=== PATIENT | male | born 1965 | race Caucasian/White ===

== ENCOUNTER 2016-12-07 18:42 | Emergency (ER) | payer OTHER ==
[~2016-12-07] VITALS: Wt 167.8 kg
[~2016-12-07 18:42] MED LIST: ALDACTONE25 MG PO; CITALOPRAM HYDR10 MG PO; COREG25 MG PO; COUMADIN5 M2 PO; DAYPRO600 M1 PO; FUROSEMIDE10 MG/ML PO; HYDROCODONE BIT1 T11 PO; INDOCIN25 MG PO; INDOCIN50 M2 RC; KEFLEX500 M1 PO; KENALOG 0.1%80 GM T; LANOXIN0.25 MG PO; LASIX20 MG PO; MOTRIN800 MG PO; PERCOCET 325 MG1 TA7 PO; POTASSIUM CHLO10 ME4 PO; PREDNISONE20 M1 PO; ROBAXIN750 MG PO; ROPINIROLE HYDRO1 MG PO; VICODIN 500 MG-1 TAB PO; VICODIN ES 7501 TAB PO; VISTARIL50 MG PO; XARE15TA PO; ZESTRIL5 MG PO; Zestril,Prinivil PO
[2016-12-07] MEDS ORDERED: CEPHALEXIN500 M1 PO (20:09)
== END 2016-12-07 20:12 | disposition home or self-care (01) ==
LOC: ED 18:42
DX: S60.032A Contusion of left middle finger without damage to nail, initial encounter (principal); L03.114 Cellulitis of left upper limb; I10 Essential (primary) hypertension; Z79.899 Other long term (current) drug therapy; X58.XXXA Exposure to other specified factors, initial encounter; Y93.9 Activity, unspecified; Y92.9 Unspecified place or not applicable; Y99.9 Unspecified external cause status

== ENCOUNTER 2016-12-11 18:14 | Emergency (ER) | payer OTHER ==
[~2016-12-11] VITALS: Ht 185.4 cm; Wt 127.0 kg
[~2016-12-11 18:14] MED LIST changes: +CEPHALEXIN500 M1 PO
[2016-12-11 19:00] LABS: BASO % 0.3 % (0.0-1.0); EOS # 0.2 10*3/uL (0.0-0.4); EOS % 1.9 % (1.0-4.0); HEMATOCRIT 49.2 % (42.0-52.0); HEMOGLOBIN 16.6 g/dl (14.0-18.0); IG # 0.1 10*3/uL (0.0-0.1); LYMPH # 3.1 10*3/uL (1.3-4.4); LYMPH % 26.8 % (27.0-41.0); MEAN CELL VOLUME 94.6 fl (80.0-94.0); MEAN CORPUSCULAR HGB 31.9 pg (27.0-31.0); MEAN CORPUSCULAR HGB CONC 33.7 g/dl (33.0-37.0); MEAN PLATELET VOLUME 10.1 fl (9.6-12.3); MONO # 0.7 10*3/uL (0.1-1.0); MONO % 6.4 % (3.0-9.0); NEUT # 7.5 10*3/uL (2.3-7.9); NEUT % 64.2 % (47.0-73.0); PLATELET COUNT AUTOMATED 223 10*3/uL (130-400); RED CELL DISTRI WIDTH 13.2 % (0-14.5); WHITE BLOOD COUNT 11.6 10*3/uL (4.8-10.8)
[2016-12-11 19:19] LABS: ALBUMIN 3.2 gm/dl (3.1-4.5); ALKALINE PHOSPHATASE 79 U/L (45-117); BILIRUBIN, TOTAL 0.9 mg/dl (0.2-1.0); BUN 13 mg/dl (7-24); C-REACTIVE PROTEIN 2.42 MG/DL (0-0.3); CARBON DIOXIDE 22 mmol/L (21-32); CHLORIDE 107 mmol/L (98-107); EST GLOM FILT AFRICAN AMERICAN > 60 ml/min; GLUCOSE 103 mg/dL (65-99); POTASSIUM 3.9 mmol/L (3.5-5.1); SGOT/AST 15 IU/L (3-35); SGPT/ALT 22 U/L (12-78); SODIUM 137 mmol/L (136-145)
[2016-12-11] MEDS ORDERED: CLINDAMYCIN150 MG PO (19:21)
== END 2016-12-11 19:32 | disposition home or self-care (01) ==
LOC: ED 18:14
PROVIDERS: Nurse Practitioner Family
DX: L03.012 Cellulitis of left finger (principal); R03.0 Elevated blood-pressure reading, without diagnosis of hypertension; M19.90 Unspecified osteoarthritis, unspecified site; Z79.01 Long term (current) use of anticoagulants; Z79.899 Other long term (current) drug therapy

== ENCOUNTER 2017-01-26 14:57 | Inpatient (IN) | payer OTHER ==
[~2017-01-26] VITALS: Ht 185.4 cm; Wt 178.0 kg
--- NOTE | ~2017-01-26 | PR ---
[place], [place] PROGRESS NOTE [id number] UNIT #: [id number] ROOM: 416 DOCTOR: IRVING MACEDO MD BIRTHDATE: [birth year] DOS: 01/27/2017 SUBJECTIVE: The patient's right arm is feeling slightly better than yesterday and he is seen by infectious disease specialist as well as orthopedic surgeon, Dr. Carver. Dr. Red, the ID specialist, figured out that the patient does not have infection, just gouty arthritis and discontinued IV vancomycin and Zosyn. OBJECTIVE: VITAL SIGNS: Blood pressure 159/93, heart rate 97 beats per minute, breathing 20 times per minute, temperature 98.6 degrees Fahrenheit. GENERAL APPEARANCE: The patient is alert and oriented x 3, in no visible distress with obesity. HEENT AND NECK: Exam within normal limits. CARDIOVASCULAR SYSTEM: Heart rate is regular in rate and rhythm. S1 and S2 normally audible. LUNGS: Clear to auscultation. ABDOMEN: Soft, nontender. No obvious organomegaly. Bowel sounds are present. Obesity. Large umbilical hernia. EXTREMITIES: Without significant cyanosis or edema. Swelling of the right forearm, elbow and hand. IMPRESSION: 1. Acute gouty arthritis to be treated with colchicine, indomethacin and Solu-Medrol and uric acid levels are pending. Dr. Carver plans to do elbow aspiration in case the swelling does not improve. 2. Leukocytosis is improving. 3. The patient was on allopurinol, which he stopped taking on his own at home, so is not being restarted at this time. 4. Chronic systolic type congestive heart failure, compensated. 5. Coronary artery disease of [place] vessels without chest pains. 6. Benign essential hypertension. The patient's home medications have been restarted. IRVING MACEDO MD CM:PNTRANS 01 46 IRVING AMCEDO MD 01/28/17 0157 interface
--- NOTE | ~2017-01-26 | WRIGHTHP ---
[place], [place] PATIENT HISTORY AND PHYSICAL EXAM NAME[facility] [id number] UNIT #: [id number] ROOM: 416 DOCTOR: IRVING MACEDO MD BIRTHDATE: [birth year] DOS: 01/26/2017 HISTORY OF PRESENT ILLNESS: The patient is a 51-year-old gentleman with a past medical history of; 1. Morbid obesity. 2. History of chronic atrial fibrillation. 3. Systolic type, chronic CHF. 4. 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 5. Chronic gouty arthritis. 6. History of coronary artery disease of [place] vessels. 7. History of benign essential hypertension. The patient presented to the Emergency Department with complaints of increasing swelling and pain starting in his right elbow and then going down his arm with warmth and pain and tenderness. In the ER, the patient was diagnosed as having cellulitis. No recent injury. The patient says he has had cellulitis in his left arm, very similar to this one before. After initial evaluation in the ER, the patient was found to have white cell count elevation to 12.3, but no fever. The patient was recommended for admission and further management with impression of cellulitis involving right forearm, hand and elbow, getting worse since Tuesday, which is 4 days. The patient was given vancomycin in the Emergency Department and recommended for admission and further management. After admission, the patient not complaining of chest pain, shortness of breath, no GI or urinary symptoms, no chest pains. REVIEW OF SYSTEMS: LUNGS: No shortness of breath or wheezing. GASTROINTESTINAL: No nausea, vomiting, diarrhea or constipation. CARDIOVASCULAR: No palpitations or chest pains. LUNGS: No shortness of breath or wheezing. FAMILY HISTORY: Noncontributory. HOME MEDICATIONS: No medications recorded as home meds. ALLERGIES: No known drug allergies. PHYSICAL EXAMINATION: GENERAL: Alert and oriented x 3, morbidly obese, in no visible distress. HEENT AND NECK: Extraocular movements are intact. Sclerae are anicteric. Oral mucosa is moist and clean. No obvious facial weakness. Neck is supple without any lymphadenopathy. No thyromegaly. No JVD. No carotid arterial bruits. LUNGS: Clear to auscultation. No wheezing. No rhonchi. CARDIOVASCULAR SYSTEM: Heart rate is regular in rate and rhythm. S1 and S2 normally audible. No significant murmur or any other abnormal cardiac sounds. ABDOMEN: Soft, nontender. No obvious organomegaly. Bowel sounds are present. No obvious herniation. EXTREMITIES: Swelling and some tenderness starting at his right elbow going all the way down to his hands. [place], [place] PATIENT HISTORY AND PHYSICAL EXAM NAME: WESLEY ALFRED UNIT #: [id number] ROOM: [facility] DOCTOR: IRVING MACEDO MD BIRTHDATE: [birth year] CENTRAL NERVOUS SYSTEM: Alert and oriented x 3. Cranial nerves II-XII are intact. Speech is normal. The patient is able to move all extremities. Normal muscle strength. Deep tendon reflexes are equal on both sides. Plantars were downgoing. IMPRESSION AND PLAN: 1. Extensive cellulitis involving the right hand, forearm and elbow to be treated with vancomycin and Zosyn and I will get a consult with infectious disease specialist to help us with treating his infection. 2. The patient's morbid obesity to work with dietary. 3. Benign essential hypertension. Blood pressure is being monitored and staying normal. I will treat as necessary. The patient's diastolic blood pressure is slightly elevated. 4. Chronic systolic type congestive heart failure, compensated left ventricular ejection fraction of 23 according to the patient in the past. 5. Chronic gouty arthritis, asymptomatic. 6. The patient with left kidney donated to sister. IRVING MACEDO MD CM:HISPHYS:PATIENT HISTORY AND PHYSICAL EXAMINATION 33 30 IRVING MACEDO MD 01/26/172230 interface
--- NOTE | ~2017-01-26 | DS ---
[place], [place] DISCHARGE SUMMARY [facility] [id number] UNIT #: [id number] ROOM: 416 DOCTOR: JUDY BAKER MD BIRTHDATE: [birth year] DOS: 01/28/2017 HOSPITAL COURSE: The patient was admitted to the hospital on 01/26/2017. He had come in with complaints of swelling in his right hand following a gout attack. It continued to get worse with increasing pain and so when he arrived at the Emergency Room, his white cell count was 12.3, was admitted. Please refer to H and P dictated by Dr. Hernandez for further details. After admission, the patient was placed on colchicine, Indocin, continued on the allopurinol. IV antibiotics were ordered. Infectious Disease was consulted. Dr. Carver saw the patient, advised stockinette compression and elevation of the arm, which seems to have worked. The swelling and the pain and redness have all subsided. He is able to bend his elbow without any pain. His hands are no longer swollen. He does not have any fever and his white cell count is normalized. The patient is otherwise stable. Uric acid level has come down to 5.3, was pretty high a few weeks ago before allopurinol was started. The patient is stable, he can be discharged to home. He is advised to go back to work on Tuesday. DISCHARGE MEDICATIONS: Coreg 25 mg twice daily, lisinopril 2.5 mg b.i.d., Requip 1 mg at bedtime, potassium 10 mEq daily, Brooten 7.5 t.i.d. p.r.n., Folic acid 1 mg daily, Lasix 40 daily, allopurinol 100 mg daily, indomethacin 25 t.i.d. for 7 days. JUDY BAKER MD CM:DISCHARG [id number] JUDY BAKER MD 01/28/17 1213 interface
--- NOTE | ~2017-01-26 | PR ---
[place], [place] PROGRESS NOTE NAME: WESLEY ALFRED UNIT #: [id number] ROOM: 416 DOCTOR: JUDY BAKER MD BIRTHDATE: [birth year] DOS: 01/28/2017 SUBJECTIVE: The patient is doing fine without any complaint. Denies any chest pains, palpitations or shortness of breath. OBJECTIVE EXAMINATION: GENERAL: The patient is awake and alert and oriented. VITAL SIGNS: Graphic trend shows a pressure 156/89, pulse of 70, respirations 20, temperature 98.1. LUNGS: Diminished breath sounds, clear. HEART: Regular. ABDOMEN: Obese, soft, nontender. EXTREMITIES: Without any edema. ASSESSMENT AND PLAN: 1. Acute gouty arthritis, arthropathy of the right hand metacarpophalangeal joint. 2. Significant cellulitis from the arthritis. The patient was given Samson wraps and looks like the swelling is completely gone. This morning's white cell count is normalized. He does not have any pain. The plan therefore is to discharge him to home. Follow up as an outpatient but I do want to do a venous Doppler to rule out DVT before he can be discharged. JUDY BAKER MD CM:PNTRANS [id number] JUDY BAKER MD 01/28/17 1437 interface
[~2017-01-26 14:57] MED LIST changes: +CLINDAMYCIN150 MG PO
[2017-01-26 15:08] VITALS: BP 144/100
[2017-01-26 15:47] LABS: BASO % 0.2 % (0.0-1.0); EOS # 0.2 10*3/uL (0.0-0.4); EOS % 1.5 % (1.0-4.0); HEMATOCRIT 48.1 % (42.0-52.0); HEMOGLOBIN 15.8 g/dl (14.0-18.0); LYMPH # 2.5 10*3/uL (1.3-4.4); LYMPH % 20.1 % (27.0-41.0); MEAN CELL VOLUME 96.4 fl (80.0-94.0); MEAN CORPUSCULAR HGB 31.7 pg (27.0-31.0); MEAN CORPUSCULAR HGB CONC 32.8 g/dl (33.0-37.0); MEAN PLATELET VOLUME 10.1 fl (9.6-12.3); MONO % 7.7 % (3.0-9.0); NEUT # 8.6 10*3/uL (2.3-7.9); PLATELET COUNT AUTOMATED 259 10*3/uL (130-400); RED BLOOD COUNT 4.99 10*6/uL (4.50-5.90); RED CELL DISTRI WIDTH 13.2 % (0-14.5); WHITE BLOOD COUNT 12.3 10*3/uL (4.8-10.8)
[2017-01-26 16:03] LABS: ALKALINE PHOSPHATASE 77 U/L (45-117); BUN 13 mg/dl (7-24); CHLORIDE 101 mmol/L (98-107); CREATININE 1.02 mg/dL (0.70-1.30); POTASSIUM 3.6 mmol/L (3.5-5.1); SGOT/AST 8 IU/L (3-35); SGPT/ALT 17 U/L (12-78); SODIUM 135 mmol/L (136-145)
[2017-01-26 16:06] LABS: URIC ACID 5.9 mg/dL (3.5-7.2)
--- NOTE | 2017-01-26 16:21 | NUR ---
THE PATIENT HAS REFUSED TO CHANGE INTO A GOWN. HE STATED "IM NOT CHANGING INTO ANY FUCKING GOWN". HE DENIED HAVING ANY OPEN AREAS TO HIS BODY. HE DID NOT PERMIT THIS NURSE TO EXAM HIS SKIN.
[2017-01-26 17:45] VITALS: BP 134/99
--- NOTE | 2017-01-26 17:45 | NUR ---
A 51, admitted to , under the services of Dr. HELLEN FERNÁNDEZ,IRVING Moura with a diagnosis of cellulitis,sepsis. Chief complaint is rt. hand is sore . Patient arrived via stretcher from ER. Monitor applied. Initial assessment completed. Vital signs taken and recorded. DR. HELLEN FERNÁNDEZ,IRVING Moura notified of admission to the unit. Orders received. See assessment for past medical history, medications and allergies. Patient and/or family oriented to unit. [facility] visitation policy reviewed. Clothing/patient valuable form completed. SAMARA HERNANDEZ
[2017-01-26] MEDS ORDERED: NATURE'S BLEND F1 MG PO (18:15)
[2017-01-26] MEDS ORDERED: LISINOPRIL2.5 MG PO (18:15)
[2017-01-26] MEDS ORDERED: NORCO 7.5-3251 EACH PO (18:15)
[2017-01-26] MEDS ORDERED: LASIX40 MG PO (18:17)
[2017-01-26] MEDS ORDERED: ALLOPURINOL100 MG PO (18:18)
[2017-01-26] MEDS ORDERED: INDOMETHACIN25 M1 PO (18:18)
--- NOTE | 2017-01-26 19:49 | NUR ---
DR. SONI BEEPED FOR CONSULT.
[2017-01-26 20:00] VITALS: BP 141/85
--- NOTE | 2017-01-26 20:05 | NUR ---
1999 DR. DIEHL ANSWERED - ORDERS RECEIVED. PT RESTING IN BED WATCHING TV. HEP LOCK INTACT. R HAND REMAINS EDEMATOUS IN APPEARANCE AND ELEVATED ON PILLOW. NO DISTRESS NOTED.
--- NOTE | 2017-01-26 22:06 | NUR ---
RESTING IN BED WITHOUT C/O'S. HEP LOCK INTACT. CONDITION GUARDED.
[2017-01-27] VITALS: BP 150/91
--- NOTE | 2017-01-27 00:50 | NUR ---
24 HR chart check completed.
[2017-01-27 06:03] LABS: BASO % 0.4 % (0.0-1.0); EOS # 0.2 10*3/uL (0.0-0.4); EOS % 1.9 % (1.0-4.0); HEMATOCRIT 43.2 % (42.0-52.0); HEMOGLOBIN 14.3 g/dl (14.0-18.0); LYMPH # 1.9 10*3/uL (1.3-4.4); MEAN CELL VOLUME 96.4 fl (80.0-94.0); MEAN CORPUSCULAR HGB 31.9 pg (27.0-31.0); MEAN CORPUSCULAR HGB CONC 33.1 g/dl (33.0-37.0); MEAN PLATELET VOLUME 10.6 fl (9.6-12.3); MONO # 0.7 10*3/uL (0.1-1.0); MONO % 7.1 % (3.0-9.0); NEUT % 71.2 % (47.0-73.0); PLATELET COUNT AUTOMATED 229 10*3/uL (130-400); RED BLOOD COUNT 4.48 10*6/uL (4.50-5.90); RED CELL DISTRI WIDTH 13.2 % (0-14.5); WHITE BLOOD COUNT 9.8 10*3/uL (4.8-10.8)
[2017-01-27 06:27] LABS: BUN 12 mg/dl (7-24); CHLORIDE 105 mmol/L (98-107); CREATININE 0.86 mg/dL (0.70-1.30); POTASSIUM 4.1 mmol/L (3.5-5.1); SODIUM 137 mmol/L (136-145)
[2017-01-27 08:00] VITALS: BP 155/97
--- NOTE | 2017-01-27 08:00 | NUR ---
Director Of Science in to talk to patient. Patient states lives at HOME IN A TRAILOR ALONE with . There are 3 steps in the home. Physician: DR BAKER Pharmacy: [facility] Home health services: Patient's level of ADLs: INDEPENDENT Patient has working utilities: YES DME: NONE Follow-up physician's appointment after d/c: PREFERS TO MAKE HIS OWN APPT Does patient want to access PORTAL?: Discharge plan HOME. HILDA STARR
--- NOTE | 2017-01-27 10:55 | NUR ---
PATIENT RESTING IN BED. C/O OF SOME PAIN IN THE RIGHT HAND BUT REFUSES PAIN BEDICATION AT THIS TIME.
--- NOTE | 2017-01-27 12:33 | NUR ---
IV OF RIGHT AC INFILTRATED IV REMOVED TIP INTACT BLEEDING CONTROLLED NEW IV INSERTED TO THE LEFT HAND 22 G GOOD BLOOD RETURN FLUSHES WELL
[2017-01-27 16:00] VITALS: BP 159/93
[2017-01-27 20:00] VITALS: BP 152/88
--- NOTE | 2017-01-27 20:31 | NUR ---
24 HR chart check completed.
[2017-01-28] VITALS: BP 156/89
--- NOTE | 2017-01-28 00:52 | NUR ---
24 HR chart check completed.
[2017-01-28 06:05] LABS: BASO % 0.1 % (0.0-1.0); EOS % 0.1 % (1.0-4.0); HEMATOCRIT 44.4 % (42.0-52.0); HEMOGLOBIN 14.5 g/dl (14.0-18.0); LYMPH # 1.2 10*3/uL (1.3-4.4); LYMPH % 14.9 % (27.0-41.0); MEAN CELL VOLUME 96.9 fl (80.0-94.0); MEAN CORPUSCULAR HGB 31.7 pg (27.0-31.0); MEAN CORPUSCULAR HGB CONC 32.7 g/dl (33.0-37.0); MEAN PLATELET VOLUME 10.5 fl (9.6-12.3); MONO # 0.3 10*3/uL (0.1-1.0); MONO % 3.5 % (3.0-9.0); NEUT # 6.7 10*3/uL (2.3-7.9); PLATELET COUNT AUTOMATED 236 10*3/uL (130-400); RED BLOOD COUNT 4.58 10*6/uL (4.50-5.90); RED CELL DISTRI WIDTH 12.7 % (0-14.5); WHITE BLOOD COUNT 8.3 10*3/uL (4.8-10.8)
[2017-01-28 08:00] VITALS: BP 160/100
--- NOTE | 2017-01-28 08:57 | NUR ---
DR BAKER NOTIFIED OF US OF RIGHT UPPER EXT.
--- NOTE | 2017-01-28 10:00 | NUR ---
PATIENT GIVEN DISCHARGE ORDERS AT [address] BAKER. ALL MEDICATION WAS EXPLAINED AND SHEET GIVEN. DR BAKER AWARE OF US OF RIGHT ARM. WALLET WAS RETURNED FROM LOCK BOX AND VERIFIED PER PATIENT. MONITOR AND HEPLOCK WAS REMOVED. PATIENT WITH OWN CAR IN PARKING LOT. DISCHARGED TO SELF.
--- NOTE | 2017-01-28 10:36 | NUR ---
PATIENT OUT OF FACILITY AT 1015
== END 2017-01-28 10:00 | disposition home or self-care (01) | DRG 872 ==
LOC: ED 14:57 → 4E 16:31 → EDHOLD 16:31 → 4E 17:28
PROVIDERS: Orthopaedic Surgery; Physician Assistant; ADMIT Internal Medicine
DX: A41.9 Sepsis, unspecified organism (principal); I11.0 Hypertensive heart disease with heart failure; I50.22 Chronic systolic (congestive) heart failure; L03.113 Cellulitis of right upper limb; Z68.41 Body mass index [BMI] 40.0-44.9, adult; M13.841 Other specified arthritis, right hand; E66.01 Morbid (severe) obesity due to excess calories; I25.10 Atherosclerotic heart disease of native coronary artery without angina pectoris; Y90.9 Presence of alcohol in blood, level not specified; M10.041 Idiopathic gout, right hand; M10.10 Lead-induced gout, unspecified site; I48.2 Chronic atrial fibrillation; F10.10 Alcohol abuse, uncomplicated; Z90.5 Acquired absence of kidney; Z83.3 Family history of diabetes mellitus; Z82.49 Family history of ischemic heart disease and other diseases of the circulatory system; Z79.899 Other long term (current) drug therapy; T56.0X1D Toxic effect of lead and its compounds, accidental (unintentional), subsequent encounter

== ENCOUNTER 2017-06-15 13:47 | Emergency (ER) | payer OTHER ==
[~2017-06-15] VITALS: Ht 185.4 cm; Wt 172.4 kg
[~2017-06-15 13:47] MED LIST changes: +ALLOPURINOL100 MG PO; +INDOMETHACIN25 M1 PO; +LASIX40 MG PO; +LISINOPRIL2.5 MG PO; +NATURE'S BLEND F1 MG PO; +NORCO 7.5-3251 EACH PO
[2017-06-15 18:54] LABS: BF LYMPHOCYTES 1 %; BF MONOCYTES 24 %; BF NEUTROPHILS 75 %
[2017-06-15 20:01] LABS: BODY FLUID WBC 6300 /uL
== END 2017-06-15 16:33 | disposition home or self-care (01) ==
LOC: ED 13:47
PROVIDERS: Nurse Practitioner
DX: S86.812A Strain of other muscle(s) and tendon(s) at lower leg level, left leg, initial encounter (principal); S90.32XA Contusion of left foot, initial encounter; S50.312A Abrasion of left elbow, initial encounter; S80.212A Abrasion, left knee, initial encounter; M12.862 Other specific arthropathies, not elsewhere classified, left knee; I10 Essential (primary) hypertension; Z79.899 Other long term (current) drug therapy; W01.198A Fall on same level from slipping, tripping and stumbling with subsequent striking against other object, initial encounter; Y93.89 Activity, other specified; Y92.090 Kitchen in other non-institutional residence as the place of occurrence of the external cause; Y99.9 Unspecified external cause status

== ENCOUNTER → 2018-03-01 | Outpatient (CLI) | payer OTHER | END | disposition home or self-care (01) | LOC: RAD 10:23 | DX: I51.7 Cardiomegaly (principal) ==

== ENCOUNTER 2018-03-13 07:04 | Emergency (ER) | payer OTHER ==
[~2018-03-13] VITALS: Ht 182.8 cm; Wt 158.8 kg
== END 2018-03-13 10:03 | disposition expired ==
LOC: ED 07:04
DX: I46.9 Cardiac arrest, cause unspecified (principal); I10 Essential (primary) hypertension; Z79.899 Other long term (current) drug therapy